=== PATIENT | male | born 1975 | race Caucasian/White ===

== ENCOUNTER 2018-07-05 01:35 | Emergency (ER) | payer OTHER ==
[~2018-07-05] VITALS: Ht 175.3 cm; Wt 99.8 kg
[2018-07-05] MEDS ORDERED: LISI5 PO (02:18)
== END 2018-07-05 03:34 | disposition home or self-care (01) ==
LOC: ER 01:35
DX: H57.8 Other specified disorders of eye and adnexa (principal); Z88.8 Allergy status to other drugs, medicaments and biological substances; Z79.899 Other long term (current) drug therapy
CPT/HCPCS: 99282